=== PATIENT | female | born 1980 | race Caucasian/White ===

== ENCOUNTER 2017-01-02 12:33 | Inpatient (IN) | payer MEDICAID ==
[~2017-01-02] VITALS: Ht 172.7 cm; Wt 76.3 kg
[2017-01-02] MEDS ORDERED: SODIUM CHLORIDE 0.9% 1,000 ML IV ONE (13:00)
[2017-01-02] MEDS ORDERED: PANTOPRAZOLE 80 MG in SODIUM CHLORIDE 0.9% 100 ML IV SCH (13:00)
[2017-01-02] MEDS ORDERED: PANTOPRAZOLE 80 MG in SODIUM CHLORIDE 0.9% 50 ML IVPB ONE (13:00)
[2017-01-02] MEDS ORDERED: SODIUM CHLORIDE FLUSH 10ML SYR IVF ONE (13:00)
[2017-01-02] MEDS ORDERED: SODIUM CHLORIDE 0.9% 1,000ML IVBOLUS ONE (13:00)
[2017-01-02] MEDS ORDERED: PLEASE ENTER ALLERGIES MC SCH ×2 (13:30)
[2017-01-02 13:36] LABS: HEMATOCRIT 30.6 % (34.6-47.8); HEMOGLOBIN 10.4 g/dL (11.7-16.4); WHITE BLOOD COUNT 7.8 x10^3/uL (3.4-10)
[2017-01-02 13:48] LABS: ASPARTATE AMINO TRANSFERASE 12 U/L (15-37); BLOOD UREA NITROGEN 18 mg/dL (7-18)
[2017-01-02] MEDS ORDERED: MORPHINE SULFATE 4 MG/ML, 1ML ONE (14:49)
[2017-01-02] MEDS ORDERED: ONDANSETRON 2MG/ML, 2ML ONE (14:49)
[2017-01-02] MEDS ORDERED: HYDROmorphone 1 MG/ML, 1ML ONE (14:53)
[2017-01-02] MEDS ORDERED: HYDROmorphone 1 MG/ML, 1ML IV ONE (15:00)
[2017-01-02] MEDS ORDERED: ONDANSETRON 2MG/ML, 2ML IVPush ONE (15:00)
[2017-01-02] MEDS ORDERED: MORPHINE SULFATE 4 MG/ML, 1ML IVPush PRN (15:00)
[2017-01-02] MEDS: SODIUM CHLORIDE 0.9% 1,000 ML IV SCH (15:42)
[2017-01-02] MEDS ORDERED: ONDANSETRON 2MG/ML, 2ML IVPush PRN (16:00)
[2017-01-02] MEDS ORDERED: BISACODYL 10 MG SUPP PR PRN (16:00)
[2017-01-02] MEDS ORDERED: POLYETHYLENE GLYCOL 17 GM PACKET PO PRN (16:00)
[2017-01-02] MEDS ORDERED: DOCUSATE 100 MG CAPSULE PO PRN (16:00)
[2017-01-02] MEDS ORDERED: PROMETHAZINE 25 MG/ML, 1ML IM PRN (16:00)
[2017-01-02 16:50] VITALS: BP 145/105
[2017-01-02] MEDS ORDERED: SODIUM PHOSPHATE 20 MMOL in SODIUM CHLORIDE 0.9% 500 ML IV ONE (18:00)
[2017-01-02 19:54] VITALS: BP 139/92
[2017-01-02] MEDS: DIPHENHYDRAMINE 50 MG CAPSULE PO PRN (21:57)
[2017-01-03 04:00] VITALS: BP 118/78
[2017-01-03 04:01] LABS: HEMATOCRIT 28.5 % (34.6-47.8); HEMOGLOBIN 9.6 g/dL (11.7-16.4); WHITE BLOOD COUNT 7.4 x10^3/uL (3.4-10)
[2017-01-03 04:08] LABS: ASPARTATE AMINO TRANSFERASE 8 U/L (15-37); BLOOD UREA NITROGEN 14 mg/dL (7-18)
[2017-01-03] MEDS: SODIUM CHLORIDE 0.9% 1,000 ML IV SCH (05:02)
[2017-01-03 08:18] VITALS: BP 118/85
[2017-01-03] MEDS: PANTOPROZOLE 40MG TABLET PO SCH ×2 (12:00→21:01)
[2017-01-03] MEDS: NICOTINE 7 MG/24 HR PATCH.TD24 TD SCH (12:01)
[2017-01-03 12:23] LABS: PATH.CAST-FLAG NOT PRESENT; SPERM-FLAG NOT PRESENT; SRC-FLAG NOT PRESENT; XTAL-FLAG NOT PRESENT; YLC-FLAG NOT PRESENT
[2017-01-03 13:59] VITALS: BP 137/87
[2017-01-03 18:31] VITALS: BP 129/87
[2017-01-03] MEDS ORDERED: DIPHENHYDRAMINE 25 MG CAPSULE ONE (20:57)
[2017-01-03] MEDS: DIPHENHYDRAMINE 50 MG CAPSULE PO PRN (21:00)
[2017-01-04 02:48] VITALS: BP 107/74
[2017-01-04 07:14] VITALS: BP 122/85
[2017-01-04 08:48] LABS: BLOOD UREA NITROGEN 8 mg/dL (7-18); TOTAL IRON BINDING CAPACITY 281 mcg/dL (250-450)
[2017-01-04 08:52] LABS: FERRITIN 6.7 ng/mL (8-252)
[2017-01-04 08:54] LABS: HEMOGLOBIN 10.4 g/dL (11.7-16.4); WHITE BLOOD COUNT 6.2 x10^3/uL (3.4-10)
[2017-01-04] MEDS ORDERED: MIDAZOLAM 1 MG/ML, 2ML ONE (09:02)
[2017-01-04] MEDS ORDERED: FENTANYL PF 100 MCG/2ML ONE (09:02)
[2017-01-04] MEDS ORDERED: PROPOFOL 10 MG/ML, 20ML ONE (09:05)
[2017-01-04] MEDS ORDERED: PROMETHAZINE 25 MG/ML, 1ML IV PRN (09:30)
[2017-01-04] MEDS ORDERED: ACETAMINOPHEN 325 MG TABLET PO PRN (09:30)
[2017-01-04] MEDS: NICOTINE 7 MG/24 HR PATCH.TD24 TD SCH (09:30)
[2017-01-04] MEDS ORDERED: FENTANYL PF 100 MCG/2ML IV PRN (09:30)
[2017-01-04] MEDS ORDERED: MEPERIDINE/PF 25MG/0.5ML IVPush PRN (09:30)
[2017-01-04] MEDS ORDERED: MIDAZOLAM 1 MG/ML, 2ML IV PRN (09:30)
[2017-01-04] MEDS: PANTOPROZOLE 40MG TABLET PO SCH (10:08)
[2017-01-04] MEDS ORDERED: FAMO20TA7 PO (13:54)
[2017-01-04] MEDS ORDERED: IRON SUCROSE COMPLEX 100MG/5ML IV ONE (14:30)
[2017-01-04] MEDS ORDERED: FERR324T8 PO (14:32)
[2017-01-04] MEDS ORDERED: FLU VACC QS2017-18 (36MOS+) UP/PF 0.5 ML IM-VACC ONE (15:00)
[2017-01-04] MEDS ORDERED: PNEUMOCOCCAL 23 VACCINE IM-VACC ONE (15:00)
== END 2017-01-04 17:35 | disposition home or self-care (01) | DRG 378 ==
LOC: ED 13:23 → EDIP 15:08 → 4WST 16:17
PROVIDERS: ADMIT Hospitalist; ATTEND Hospitalist
PROC: 0DB68ZX Excision of Stomach, Via Natural or Artificial Opening Endoscopic, Diagnostic (ICD-10-PCS; 2017-01-04)
PROC: 0DB98ZX Excision of Duodenum, Via Natural or Artificial Opening Endoscopic, Diagnostic (ICD-10-PCS; principal; 2017-01-04 09:00)
DX: K26.4 Chronic or unspecified duodenal ulcer with hemorrhage (principal); D62 Acute posthemorrhagic anemia; E44.0 Moderate protein-calorie malnutrition; K92.0 Hematemesis; E78.5 Hyperlipidemia, unspecified; F12.90 Cannabis use, unspecified, uncomplicated; F31.9 Bipolar disorder, unspecified; F17.200 Nicotine dependence, unspecified, uncomplicated; F41.9 Anxiety disorder, unspecified; F60.3 Borderline personality disorder; I10 Essential (primary) hypertension; Z66 Do not resuscitate; J44.9 Chronic obstructive pulmonary disease, unspecified; K14.0 Glossitis; Z68.25 Body mass index [BMI] 25.0-25.9, adult; Z59.0 Homelessness; Z87.442 Personal history of urinary calculi; Z87.820 Personal history of traumatic brain injury; Z88.0 Allergy status to penicillin; Z98.51 Tubal ligation status; Z88.5 Allergy status to narcotic agent; Z88.2 Allergy status to sulfonamides; Z23 Encounter for immunization
CPT/HCPCS: 36415; 74020; 80048; 80053; 81001; 82728; 83540; 83550; 83690; 83735; 84100; 84703; 85018; 85025; 85610; 86592; 86780; 86850; 86900; 87086; 88305; 90732; 93005; 96365; 96375; J1170; J1756; J2250; J2405; J2704; J3010; C9113; J7030; J7040